=== PATIENT | male | born 1985 | race African-American/Black ===

== ENCOUNTER 2017-06-21 07:49 | Emergency (ER) | payer SELFPAY ==
[~2017-06-21] VITALS: Ht 175.3 cm; Wt 78.0 kg
[2017-06-21] MEDS ORDERED: LACTATED RINGERS 1,000 ML IV STA (08:14)
[2017-06-21] MEDS ORDERED: SODIUM CHLORIDE 0.9% 1,000 ML IV ONE (08:14)
[2017-06-21 08:32] LABS: BASOPHILS % 0.1 % (0.0-2.0); HEMOGLOBIN. 16.7 g/dL (14.0-18.0); LYMPHOCYTES % 7.6 % (20.0-50.0); MEAN CORPUSCULAR HEMOGLOBIN 28.2 pg (28.0-32.0); MEAN CORPUSCULAR VOLUME 80.7 fL (80.0-94.0); MONOCYTES % 4.6 % (2.0-8.0); NEUTROPHILS % 87.7 % (40.0-76.0); PLATELET 213 x1000/uL (130-400); RED BLOOD CELL COUNT 5.94 mill/uL (4.7-6.1); RED CELL DISTRIBUTION WIDTH 15.1 % (11.6-14.6)
[2017-06-21 08:38] LABS: CHLORIDE 100 mEq/L (98-107)
[2017-06-21 10:47] LABS: CLARITY URINE CLEAR (CLEAR); COLOR URINE YELLOW (YELLOW); KETONES URINE 1+ (NEGATIVE); LEUKOCYTE ESTERASE URINE NEGATIVE (NEGATIVE); NITRITE URINE NEGATIVE (NEGATIVE); OCCULT BLOOD URINE NEGATIVE (NEGATIVE); PROTEIN URINE TRACE (NEGATIVE); SPECIFIC GRAVITY URINE 1.018 (1.005-1.030); UROBILINOGEN URINE 0.2 E.U./dL (0.2-1.0)
[2017-06-21 12:10] VITALS: BP 98/74
== END 2017-06-21 14:59 | disposition home or self-care (01) ==
LOC: ER 08:34
DX: K52.9 Noninfective gastroenteritis and colitis, unspecified (principal); E86.0 Dehydration
CPT/HCPCS: 36415; 80053; 81003; 83605; 83690; 85025; 96360; 96361; 99285; J7030; J7120; Z7610; 99284